=== PATIENT | female | born 1975 | race Two or more races ===

== ENCOUNTER 2022-02-14 06:26 | Emergency (ER) | payer OTHER ==
[~2022-02-14] VITALS: Ht 154.9 cm; Wt 81.0 kg
[2022-02-14] MEDS ORDERED: ONDANSETRON ODT4 MG PO (09:15)
[2022-02-14] MEDS ORDERED: DICYCLOMINE HCL20 MG PO (09:15)
--- NOTE | 2022-02-14 18:24 | EKG ---
[facility] [address] [facility] [place] [address] Signed Normal sinus rhythm Normal ECG No previous ECGs available Confirmed by EKTA VÁZQUEZ MD ([id number]) on 02/14/2022 6:24:25 PM Electronically Signed By: EKTA VÁZQUEZ MD 02/14/22 1824 PATIENT NAME: LINDSAY MCNAMARAA Drew Electrocardiogram DATE OF : 75 PHYSICIAN: EKTA VÁZQUEZ MD REPORT #: [id number] REPORT IS CONFIDENTIAL AND NOT TO BE RELEASED WITHOUT AUTHORIZATION
== END 2022-02-14 09:24 | disposition home or self-care (01) ==
LOC: ED 06:26
DX: R10.84 Generalized abdominal pain (principal); R07.9 Chest pain, unspecified; R19.7 Diarrhea, unspecified; R05.9 Cough, unspecified; Z20.822 Contact with and (suspected) exposure to COVID-19
CPT/HCPCS: 36415; 71045; 74177; 80053; 81001; 83690; 84484; 84703; 85025; 93005; 93010; 96375; 99284-25; A9270; C9803; J0500; J1170; J2405; Q9967; U0003